=== PATIENT | female | born 1960 | race Caucasian/White ===

== ENCOUNTER 2020-07-13 12:02 | Emergency (ER) | payer OTHER ==
[~2020-07-13] VITALS: Ht 165.1 cm; Wt 98.4 kg
--- NOTE | 2020-07-13 12:10 | NUR ---
rec'd pt in rm 4 with c/o n/v since last nite. placed on the monitor and ekg done. pt keeps repeating "my head hurts".
[2020-07-13] MEDS ORDERED: ASPIRIN 81 MG CHEW TAB PO ONE (12:15)
--- NOTE | 2020-07-13 12:58 | NUR ---
4 unsuccessful attempts at an iv Addendum: 07/13/20 at 1408 by DEBALD INFORMED OF NO IV ACCESS
[2020-07-13] MEDS ORDERED: SODIUM CHLORIDE 0.9% 1000ML 1,000 ML IV SCH (13:00)
--- NOTE | 2020-07-13 13:00 | Emergency Department Note ---
History of Present Illnes History of Present Illness Chief Complaint: General Medicine Complaints History of Present Illness This is a 60 year old female arrived to the ED with complaints of right upper quadrant abdominal pain for 1 day . Chief Complaint Comment Patient in from [facility] via EMS with complaints of RUQ abdominal pain, headache, nausea and vomiting since yesterday. Patient reports that the symptoms all came on suddenly after eating dinner. Per facility nurse report the patient was given Zofran and Reglan for the nausea with no improvement and her vomiting became projectile in nature this morning. The patient reports 6 episodes of vomit in the last 24 hours. Patient does report that her vomit has been dark in color. Patient has a history of bowel obstructions requiring NG tube placement. Patient states that her last meal was last night and has not attempted to eat anything today. Historian: Patient Arrival Mode: Car Onset (how long ago): day(s) Radiation: Reports back Severity: moderate Onset quality: gradual Duration (how long): day(s) Timing of current episode: constant Progression: waxing and waning Chronicity: new Relieving factors: none Exacerbating factors: eating Associated symptoms: Reports fever/chills, Reports loss of appetite, Reports nausea/vomiting (SRINIVASA MIX, ) Past Medical/Family History Physician Review I have reviewed the patient's past medical and family history. Any updates have been documented here. (SRINIVASA MIX, ) Past Medical History Recent Fever: No Clinical Suspicion of Infectio: No New/Unexplained Change in Ment: No Past Medical History: Hypertension, CVA, Asthma, Hypothyroidism, UTI's, Anxiety, GERD, Hyperlipedemia Other Medical History: insomnia dry eye syndrome Gastroparesis Past Surgical History: Hysterectomy, T&A (SRINIVASA MIX, ) Social History Smoking Cessation: Never Smoker Counseling Performed: No Alcohol Use: None Any Illegal Drug Use: No (SRINIVASA MIX, DO) Other Any Pre-Existing Lines (PICC,: No (SRINIVASA MIX, DO) Review of Systems Review of Systems Constitutional: Reports no symptoms EENTM: Reports no symptoms Cardiovascular: Reports no symptoms Respiratory: Reports no symptoms Gastrointestinal: Reports as per HPI, Reports abdominal pain, Reports nausea, Reports vomiting Genitourinary: Reports no symptoms Musculoskeletal: Reports no symptoms Integumentary: Reports no symptoms Neurological: Reports no symptoms Psychological: Reports no symptoms Endocrine: Reports no symptoms Hematological/Lymphatic: Reports no symptoms Review of other systems: All other systems negative (SRINIVASA MIX DO) Physical Exam Related Data Allergies: Coded Allergies: Penicillins (Verified Allergy, Intermediate, hives, 07/13/20) metronidazole (Verified Allergy, Intermediate, hives, 07/13/20) clopidogrel (Verified Allergy, Mild, vomiting, 07/13/20) Triage Vital Signs Vital Signs Date Time Temp Pulse Resp B/P (MAP) Pulse Ox O2 Delivery O2 Flow Rate FiO2 07/13/20 12:09 97.6 104 16 158/91 95 Room Air Vital signs reviewed: Yes (SRINIVASA MIX DO) Physical Exam CONSTITUTIONAL Constitutional: Present well-developed, Present well-nourished HENT HENT: Present normocephalic, Present atraumatic, Present oropharynx clear/moist, Present nose normal HENT L/R: Present left ext ear normal, Present right ext ear normal EYES Eyes: Reports PERRL, Reports conjunctivae normal NECK Neck: Present ROM normal PULMONARY Pulmonary: Present effort normal, Present breath sounds normal CARDIOVASCULAR Cardiovascular: Present regular rhythm, Present heart sounds normal, Present capillary refill normal, Present normal rate GASTROINTESTINAL Abdominal: Present soft, Present bowel sounds normal, Present tender GENITOURINARY Genitourinary: Present exam deferred SKIN Skin: Present warm, Present dry MUSCULOSKELETAL Musculoskeletal: Present ROM normal NEUROLOGICAL Neurological: Present alert, Present oriented x 3, Present no gross motor or sensory deficits PSYCHOLOGICAL Psychological: Present mood/affect normal, Present judgement normal (SRINIVASA MIX DO) Results Laboratory Lab results reviewed: Yes (SRINIVASA MIX DO) Imaging Imaging results reviewed: Yes (SRINIVASA MIX DO) Assessment & Plan Medical Decision Making MDM 60 y.o F presents for abd pain and N/V. W/u including CT and US shows no significant findings. Labs benign. Doubt emergent process. Discussed results with patient and will DC to [facility]. (YOSELIN SAWYER MD) Reassessment Reassessment time: 21:30 Reassessment Well appearing, NAD (YOSELIN SAWYER MD) Assessment & Plan Final Impression: (1) Abdominal pain (YOSELIN SAWYER MD) Depart Disposition: HOME, SELF-CARE Last Vital Signs Date Time Temp Pulse Resp B/P (MAP) Pulse Ox O2 Delivery O2 Flow Rate FiO2 07/13/20 12:09 97.6 104 16 158/91 95 Room Air (SRINIVASA MIX DO) Medications in the ED Aspirin 81 mg PRN ONCE PO ; Start 07/13/20 at 12:15; Stop 07/13/20 at 12:20; Status DC Sodium Chloride 1,000 ml @ 100 mls/hr Q10H IV ; Start 07/13/20 at 13:00; Stop 08/12/20 at 12:59; Status UNV Morphine Sulfate 4 mg ONCE PRN IV SEVERE PAIN (7-10); Start 07/13/20 at 13:00; Stop 07/20/20 at 12:59 Ondansetron HCl 4 mg NOW STAT IV ; Start 07/13/20 at 12:50; Stop 07/13/20 at 12:51 (SRINIVASA MIX DO) SRINIVASA MIX DO Jul 13, 2020 13:00 YOSELIN SAWYER MD Jul 13, 2020 21:26
--- NOTE | 2020-07-13 14:22 | NUR ---
LAB CALLED TO DRAW THE PT.
[2020-07-13 14:53] LABS: BASOPHILS # (AUTO) 0.1 (0.0-0.1); BASOPHILS % 0.3 % (0.0-1.0); EOSINOPHILS % 0.1 % (0.0-6.0); HEMATOCRIT 43.4 % (34.2-44.1); HEMOGLOBIN 14.5 g/dL (12.0-16.0); LYMPHOCYTES % 13.5 % (18.0-39.1); MEAN CORPUSCULAR HEMOGLOBIN 29.2 pg (28-32); MEAN CORPUSCULAR HGB CONC 33.4 g/dL (31-35); MEAN CORPUSCULAR VOLUME 87.3 fL (81-99); MONOCYTES # (AUTO) 1.2 (0.2-0.8); MONOCYTES % 7.8 % (4.4-11.3); NEUTROPHILS # (AUTO) 11.6 (2.1-6.9); NEUTROPHILS % 77.6 % (38.7-80.0); PLATELET COUNT 372 x10e3/uL (140-360); RED BLOOD COUNT 4.97 x10e6/uL (3.6-5.1); RED CELL DISTRIBUTION WIDTH 13.6 % (11.7-14.4)
[2020-07-13 15:13] LABS: ALANINE AMINOTRANSFERASE 24 IU/L (0-55); ALBUMIN 3.9 g/dL (3.5-5.0); ALBUMIN/GLOBULIN RATIO 0.8 (0.8-2.0); ALKALINE PHOSPHATASE 247 IU/L (40-150); ANION GAP 17.4 mmol/L (8-16); BLOOD UREA NITROGEN 12 mg/dL (7-26); BUN/CREATININE RATIO 16 (6-25); CALCIUM 9.6 mg/dL (8.4-10.2); CARBON DIOXIDE 28 mmol/L (22-29); CHLORIDE 98 mmol/L (98-107); CREATINE KINASE 15 IU/L (29-168); CREATININE, SERUM 0.73 mg/dL (0.57-1.11); EST GLOMERULAR FILTRATION RATE > 60 ML/MIN (60-); GLUCOSE 123 mg/dL (74-118); POTASSIUM 3.4 mmol/L (3.5-5.1); SODIUM 140 mmol/L (136-145)
[2020-07-13] MEDS: ONDANSETRON HCL INJ 2MG/ML 2ML 2 MG/ML VIAL IV STA ×2 (15:24→16:20)
[2020-07-13] MEDS: MORPHINE SULFATE INJ 4 MG/ML INJ 1ML IV PRN ×2 (15:24→16:20)
--- NOTE | 2020-07-13 16:35 | NUR ---
ct was notified that the pt has an iv
[2020-07-13] MEDS ORDERED: SODIUM CHLORIDE 0.9% 50ML 50 ML ONE (16:50)
[2020-07-13] MEDS ORDERED: IOPAMIDOL 370 MG/ML 200 ML INFUS..BTL INJ ONE (16:50)
[2020-07-13] MEDS ORDERED: PIPER-TAZ 3.375 GM 50 ML IV STA (17:55)
--- NOTE | 2020-07-13 18:17 | Diagnostic Imaging Report ---
EXAM: CT Abdomen and Pelvis WITH contrast INDICATION: Right upper quadrant pain COMPARISON: None. TECHNIQUE: Abdomen and pelvis were scanned utilizing a multidetector helical scanner from the lung base to the pubic symphysis after administration of IV contrast. Coronal and sagittal reformations were obtained. Routine protocol was performed. Scan was performed when during portal venous phase. IV CONTRAST: 100 mL of Isovue 370 ORAL CONTRAST: None COMPLICATIONS: None RADIATION DOSE: Total DLP: 826 mGy*cm Estimated effective dose: (DLP x 0.015 x size factor) mSv CTDIvol has been reviewed. It is below the limits set by the Radiation Protocol Committee (RPC). Dose modulation, iterative reconstruction, and/or weight based adjustment of the mA/kV was utilized to reduce the radiation dose to as low as reasonably achievable. FINDINGS: LINES and TUBES: None. LOWER THORAX: There is bibasilar atelectasis. There is atherosclerotic calcification of the coronary vessels and aortic root. HEPATOBILIARY: The liver is diffuse hypodense compared to the spleen, consistent with diffuse hepatic diffuse hepatic steatosis. No focal hepatic lesions. No biliary ductal dilation. GALLBLADDER: No radio-opaque stones or sludge. No wall thickening. SPLEEN: No splenomegaly. PANCREAS: No focal masses or ductal dilatation. ADRENALS: No adrenal nodules KIDNEYS/URETERS: The kidneys appear slightly atrophic with multiple cysts, the largest in the upper pole of the right kidney measuring approximately 2.9 x 3.2 cm. Kidneys enhance symmetrically. No hydronephrosis. No stones. GI TRACT: There is a small hiatal hernia. The distal esophagus appears slightly thickened and demonstrates. No abnormal distention, wall thickening, or evidence of bowel obstruction. Appendix is normal. PELVIC ORGANS/BLADDER: Evaluation of the pelvic organs is limited by streak artifact from right femur hardware. No gross abnormality identified. LYMPH NODES: No lymphadenopathy. VESSELS: There is moderate atherosclerotic disease in the aorta and major arterial branches. PERITONEUM / RETROPERITONEUM: No free air or fluid. BONES: There are degenerative changes in the spine. Partially imaged right femoral intramedullary nail. No evidence of hardware consultation. SOFT TISSUES: Unremarkable. IMPRESSION: 1. Small hiatal hernia with mild thickening and edema of the distal esophagus suggestive of esophagitis. Consider gastroenterology referral for further evaluation and to determine need for upper endoscopy. 2. Otherwise no acute abdominopelvic abnormality identified. Signed by: Jonah Richards MD on 07/13/2020 6:13 PM
--- NOTE | 2020-07-13 18:51 | NUR ---
radiology called to page out ultrasound
[2020-07-13] MEDS ORDERED: CEFEPIME 1GM/NS 0.9% 50 ML 50 ML IV SCH (19:00)
--- NOTE | 2020-07-13 21:14 | Diagnostic Imaging Report ---
EXAM: Right Upper Quadrant Ultrasound with Doppler INDICATION: Right upper quadrant pain COMPARISON: CT abdomen and pelvis on 07/13/2020. TECHNIQUE: Transverse and longitudinal images of the right upper abdomen were obtained. Grayscale, color Doppler and spectral waveform analysis of the hepatic vasculature and splenic vein were performed. FINDINGS: Liver: Size: 16.7 cm in the right midclavicular line, normal Appearance: Increased echogenicity, smooth contour Mass: No focal masses Gallbladder: Stones/Sludge: There is gallbladder sludge. No cholelithiasis. Wall: 0.3 cm Appearance: No pericholecystic fluid or hydrops. Sonographic Angeles's Sign: Negative Bile Ducts: Intrahepatic Ducts: No dilatation Extrahepatic Ducts: Common bile duct measures 0.2 cm, no dilatation Pancreas: Visualized portions of the pancreatic head, neck and proximal body are normal. Right Kidney: Size: 10.3 cm Echogenicity: Normal Parenchymal thickness: Normal Collecting system: No hydronephrosis Stones: None Cyst/Mass: There are multiple right renal cysts better demonstrated on comparison CT of the abdomen/pelvis. Vessels: Main Portal Vein: Diameter: 0.5 cm, normal. Normal flow direction. Aorta: Visualized portions are normal Inferior Vena Cava: Visualized portions are normal Free Fluid: No ascites or pleural effusion IMPRESSION: 1. Gallbladder sludge with no evidence of cholelithiasis or cholecystitis. 2. Hepatic steatosis. LV hyper to kid LV hypo to spleen Jacobs hyper to LV Liver Male < 16 cm Female < 15 cm Kidneys: NL 9-12 cm, <13 cm Spleen < 12 cm CBD < 7 mm CHD < 4-5 mm GB Wall < 3 mm Hydrops > 10 x 5 cm PV < 13 mm Panc. duct 3-2-1 Signed by: Jonah Richards MD on 07/13/2020 9:10 PM
--- NOTE | 2020-07-13 22:06 | NUR ---
[facility] CALLED FOR TX BACK TO [facility]; ETA APPROX. 30-45MINS
== END 2020-07-13 23:05 | disposition home or self-care (01) ==
LOC: ER 13:09
DX: R10.11 Right upper quadrant pain (principal); R11.2 Nausea with vomiting, unspecified; R51.9 Headache, unspecified; I10 Essential (primary) hypertension; E78.5 Hyperlipidemia, unspecified; E03.9 Hypothyroidism, unspecified; K21.9 Gastro-esophageal reflux disease without esophagitis; F41.9 Anxiety disorder, unspecified; G47.00 Insomnia, unspecified; Z86.73 Personal history of transient ischemic attack (TIA), and cerebral infarction without residual deficits
CPT/HCPCS: 36415; 74177; 76705; 80053; 82550; 82553; 83605; 83690; 84484; 85025; 87040; 93005; 99284; J0692; J2270; J2405; J7030; Q9967